=== PATIENT | female | born 1970 | race Caucasian/White ===

== ENCOUNTER 2018-09-27 07:48 | Day surgery (SDC) | payer OTHER ==
[~2018-09-27 07:48] MED LIST: ROCURONIUM 50 MG INJ
[2018-09-27] MEDS ORDERED: ROPIVACAINE 0.5 % 30 ML VIAL ×2 (09:20→09:28)
[2018-09-27] MEDS ORDERED: NEOMYC/POLYMYX/BACIT 30 GM OINT (09:21)
[2018-09-27] MEDS ORDERED: FENTAnyl 50 MCG/ML VIAL ×2 (09:27→09:51)
[2018-09-27] MEDS ORDERED: MIDAZOLAM 1 MG/ML 2 ML INJ (09:27)
[2018-09-27] MEDS: POLYMYXIN/BACITRACIN 1L IRRIG (10:38)
[2018-09-27] MEDS ORDERED: PROPOFOL 20 ML (11:34)
[2018-09-27] MEDS ORDERED: CEFAZOLIN 1 GM INJ (11:34)
[2018-09-27] MEDS ORDERED: LIDOCAINE 2% (SDV) 5 ML INJ (11:34)
[2018-09-27] MEDS ORDERED: ONDANSETRON 4 MG INJ (11:35)
[2018-09-27] MEDS ORDERED: FENTAnyl 50 MCG/ML VIAL IV (13:00)
[2018-09-27] MEDS ORDERED: HYDROmorphONE 1 MG/5 ML IV SYRINGE IV (13:00)
[2018-09-27] MEDS ORDERED: DIPHENHYDRAMINE 50 MG INJ IV (13:00)
[2018-09-27] MEDS ORDERED: MEPERIDINE 25 MG INJ IV (13:00)
[2018-09-27] MEDS ORDERED: METOCLOPRAMIDE 10 MG INJ IV (13:00)
[2018-09-27] MEDS: HYDROmorphONE 1 MG/5 ML IV SYRINGE IV (13:34)
[2018-09-27] MEDS: ONDANSETRON 4 MG INJ IV (13:34)
[2018-09-27] MEDS: OXYCODONE/ACETAMINOPHEN (5/325) TAB PO (14:24)
== END 2018-09-27 15:45 | disposition home or self-care (01) ==
LOC: SDS 07:48
DX: S82.841G Displaced bimalleolar fracture of right lower leg, subsequent encounter for closed fracture with delayed healing (principal); S93.491D Sprain of other ligament of right ankle, subsequent encounter; V09.9XXD Pedestrian injured in unspecified transport accident, subsequent encounter
CPT/HCPCS: 27814; 73600; 82306; 84703

== ENCOUNTER 2019-03-25 05:48 | Day surgery (SDC) | payer OTHER ==
[2019-03-25] MEDS ORDERED: PROPOFOL 100 ML (07:22)
[2019-03-25] MEDS ORDERED: ROCURONIUM 50 MG INJ (07:22)
[2019-03-25] MEDS: POLYMYXIN/BACITRACIN 1L IRRIG (07:34)
[2019-03-25] MEDS ORDERED: CEFAZOLIN 1 GM INJ (08:10)
[2019-03-25] MEDS ORDERED: LIDOCAINE 2% (SDV) 5 ML INJ (08:10)
[2019-03-25] MEDS: NEOMYC/POLYMYX/BACIT 30 GM OINT (09:07)
[2019-03-25] MEDS: ROPIVACAINE 0.5 % 30 ML VIAL (09:08)
[2019-03-25] MEDS ORDERED: DEXAMETHASONE 4 MG/ML 5 ML INJ (09:24)
[2019-03-25] MEDS ORDERED: GLYCOPYRROLATE 0.4 MG INJ (09:24)
[2019-03-25] MEDS ORDERED: ONDANSETRON 4 MG INJ (09:24)
[2019-03-25] MEDS ORDERED: NEOSTIGMINE 3 MG/3 ML SYRINGE (09:24)
[2019-03-25] MEDS: FENTAnyl 50 MCG/ML VIAL IV ×2 (09:46→10:17)
[2019-03-25] MEDS: KETOROLAC 30 MG INJ IV (09:47)
[2019-03-25] MEDS ORDERED: FENTAnyl 50 MCG/ML VIAL IV (10:00)
[2019-03-25] MEDS ORDERED: ALBUTEROL 0.083% (NEB) 2.5 MG/3 ML AMP HHN (10:00)
[2019-03-25] MEDS ORDERED: METOCLOPRAMIDE 10 MG INJ IV (10:00)
[2019-03-25] MEDS ORDERED: LABETALOL HCL 20MG INJ IV (10:00)
[2019-03-25] MEDS ORDERED: DIPHENHYDRAMINE 50 MG INJ IV (10:00)
[2019-03-25] MEDS ORDERED: EPHEDrine 25 MG/5 ML SYG IV (10:00)
[2019-03-25] MEDS ORDERED: OXYCODONE/ACETAMINOPHEN (5/325) TAB PO (10:00)
[2019-03-25] MEDS ORDERED: MEPERIDINE 25 MG INJ IV (10:00)
[2019-03-25] MEDS ORDERED: ONDANSETRON 4 MG INJ IV (10:00)
[2019-03-25] MEDS ORDERED: hydrALAzine 20 MG INJ IV (10:00)
[2019-03-25] MEDS: morphine 2 MG INJ IV (10:18)
[2019-03-25] MEDS: OXYCODONE/ACETAMINOPHEN (5/325) TAB PO (10:31)
== END 2019-03-25 15:52 | disposition home or self-care (01) ==
LOC: SDS 05:48
DX: T84.84XA Pain due to internal orthopedic prosthetic devices, implants and grafts, initial encounter (principal); Y83.8 Other surgical procedures as the cause of abnormal reaction of the patient, or of later complication, without mention of misadventure at the time of the procedure; Y79.3 Surgical instruments, materials and orthopedic devices (including sutures) associated with adverse incidents; S93.421A Sprain of deltoid ligament of right ankle, initial encounter; X58.XXXA Exposure to other specified factors, initial encounter
CPT/HCPCS: 20680; 73610-RT; 82306; 88300